=== PATIENT | male | born 1990 | race Caucasian/White ===

== ENCOUNTER 2017-04-27 20:08 | Emergency (ER) | payer MEDICAID ==
[~2017-04-27] VITALS: Ht 172.7 cm; Wt 131.1 kg
[2017-04-27 20:10] VITALS: BP_SYST 108
--- NOTE | 2017-04-27 20:10 | NUR ---
to waiting room awaiting available bed . stable.
[2017-04-27 22:14] LABS: BILIRUBIN,URINE NEGATIVE (NEGATIVE); BLOOD, URINE NEGATIVE (NEGATIVE); CLARITY/URINE CLEAR (CLEAR); COLOR,URINE YELLOW (YELLOW); GLUCOSE,URINE NEGATIVE (NEGATIVE); KETONES,URINE NEGATIVE (NEGATIVE); LEUKOCYTE ESTERASE ,URINE TRACE (NEGATIVE); NITRITE, URINE NEGATIVE (NEGATIVE); PROTEIN URINE NEGATIVE (NEGATIVE); UROBILINOGEN,URINE 0.2 (0.2-1.0)
--- NOTE | 2017-04-27 22:15 | NUR ---
Patient to ER bed 3 to gown for evaluation. Side rails up. Report given to DAKOTAH JOHNSON.
--- NOTE | 2017-04-27 22:20 | NUR ---
Patient AAO x4, sitting in bed, c/o anxiety since 1900 . Denies shortness of breath, denies chest pain, denies nausea/vomiting/ diarrhea. No acute distress noted. Will continue to monitor.
[2017-04-27 22:27] LABS: BACTERIA,URINE FEW /HPF (None Seen); RBC,URINE 0-3 /HPF (0-3); URINE AMORPHOUS PHOSPHATES 1+ /HPF (None Seen)
--- NOTE | 2017-04-27 22:30 | NUR ---
ER at bedside examining patient.
[2017-04-27] MEDS ORDERED: LORazepam 1 MG TABLET PO ONE (23:00)
[2017-04-27 23:33] VITALS: BP_SYST 110
--- NOTE | 2017-04-27 23:33 | NUR ---
Patient given written and verbal discharge instructions and verbalizes understanding. ER MD discussed with patient the results and treatment provided. Patient in stable condition. ID arm band removed. Rx of Xanax 1 mg tab given. Patient educated on pain management and to follow up with PMD. Pain Scale 0/10. Opportunity for questions provided and answered.
== END 2017-04-27 23:33 | disposition home or self-care (01) ==
LOC: SED 20:08
DX: F41.9 Anxiety disorder, unspecified (principal)
CPT/HCPCS: 81000-TC; 87086; 99284